=== PATIENT | male | born 2000 | race Caucasian/White ===

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

== ENCOUNTER 2022-05-10 12:10 | Emergency (ER) | payer MEDICAID ==
[~2022-05-10] VITALS: Ht 188 cm; Wt 63.4 kg
[2022-05-10] VITALS (13 sets, daily range): BP systolic 95–146; BP diastolic 62–92
[~2022-05-10 12:10] MED LIST changes: +CLEOCIN300 MG PO; +DELTASONE20 MG PO; +MEDDOSEPAK PO; +OMNICEF300 MG PO; +TORADOL PO
[2022-05-10 12:50] LABS: HEMATOCRIT 48.9 % (39.0-50.0); IMMATURE GRANULOCYTES 0.2 % (0.0-5.0); MEAN CELL VOLUME 91.7 fL CALC (80.0-100.0); MEAN CORPUSCULAR HGB 33.6 pG CALC (26.0-32.0); MEAN CORPUSCULAR HGB CONC 36.6 g/dL CAL (32.0-36.0); NEUT# 8.43 thou/uL (1.82-7.42); RED BLOOD COUNT 5.33 mill/uL (4.70-6.10)
[2022-05-10 12:52] LABS: HEMOGLOBIN 17.9 g/dl (14.0-18.0)
[2022-05-10 13:03] LABS: ALKALINE PHOSPHATASE 80 u/l (38-126); BUN 15 mg/dL (9-20); BUN/CREATININE RATIO 18 (12-20 (CALC)); CHLORIDE 106 mmol/l (95-108); CREATININE 0.8 mg/dL (0.7-1.3); GFR FOR AFR.AMER. > 60 ML/MIN (>=60 (CALC)); GFR OTHER RACES > 60 ML/MIN (>=60 (CALC)); POTASSIUM 3.9 mmol/l (3.5-5.1); SODIUM 143 mmol/l (137-146); TOTAL PROTEIN 9.1 g/dL (6.3-8.2)
[2022-05-10 13:07] LABS: ALBUMIN 5.4 g/dL (3.2-5.0); ANION GAP 20 (6-22 (CALC)); BILIRUBIN, TOTAL 1.6 mg/dL (0.0-1.4); CARBON DIOXIDE 21 mmol/l (22-30); SGOT/AST 27 u/l (17-59)
[2022-05-10 14:58] LABS: URINE BLOOD DIPSTICK TRACE-INTACT (NEGATIVE); URINE COLOR YELLOW; URINE GLUCOSE - DIPSTICK NEGATIVE (NEGATIVE); URINE KETONE >=80 mg/dL (NEGATIVE); URINE LEUK ESTERASE NEGATIVE (NEGATIVE); URINE PROTEIN - DIPSTICK NEGATIVE (NEG-TRACE); URINE SPECIFIC GRAVITY 1.025
[2022-05-10 15:00] LABS: URINE BILIRUBIN - DIPSTICK SMALL (NEGATIVE); URINE NITRITE - DIPSTICK NEGATIVE (Negative)
== END 2022-05-10 15:34 | disposition home or self-care (01) ==
LOC: ED 12:10
PROVIDERS: Nurse Practitioner
DX: J45.901 Unspecified asthma with (acute) exacerbation (principal); Z20.822 Contact with and (suspected) exposure to COVID-19
CPT/HCPCS: J3475